=== PATIENT | male | born 1945 | race Caucasian/White ===

== ENCOUNTER → 2017-12-24 | Emergency (ER) | payer MEDICARE ==
[~2017-12-24] MED LIST: AMIGESIC750 MG PO; CILOSTAZOL100 MG PO; DUO-KAPS1 CAP PO; METOPROLOL SUCC25 M1 PO; MOBIC15 M1 PO; MULTIPLE VITAMI1 TA1 PO; NEURONTIN100 M1 PO; PAIN RELIEVER500 M2 PO; PENTOPAK400 MG PO; PRILOSEC 20MG20 MG PO; ST. JOSEPH81 M2 PO; ULTRAM50 M1 PO; VITAMIN C PURE500 M1 PO; VITAMIN C500 MG PO; XALATAN EYE DROPS OU
[2017-12-24 16:45] LABS: EOS # 0.2 (0.04-0.40); EOS % 2.2 % (0.0-4.0); HEMATOCRIT 47.2 % (42.0-52.0); HEMOGLOBIN 15.7 g/dL (13.5-18.0); LYMPH# 1.7 (1.50-4.00); MEAN CELL VOLUME 90 fl (78-100); MEAN CORPUSCULAR HEMOGLOBIN 30 pg (27-31); MEAN CORPUSCULAR HGB CONC 33 g/dL (33-37); MEAN PLATELET VOLUME 10.4 fl (7.4-10.4); MONO # 0.9 (0.20-0.80); NEU # 6.5 (1.40-6.50); PLATELET COUNT 234 K/mm3 (130-400); RED BLOOD COUNT 5.22 M/mm3 (4.20-5.60); RED CELL DISTRIBUTION WIDTH 14.2 % (11.5-14.5); WHITE BLOOD COUNT 9.4 K/mm3 (4.8-10.8)
[2017-12-24 16:52] LABS: ALBUMIN 4.5 g/dL (3.5-5.0); BUN/CREATININE RATIO 16.4 (6.0-26.0); CALCIUM 9.2 mg/dL (8.4-10.2); POTASSIUM 3.4 mmol/L (3.6-5.0); TOTAL BILIRUBIN 0.8 mg/dL (0.2-1.3); TOTAL PROTEIN 7.9 g/dL (6.3-8.2)
[2017-12-24 19:45] VITALS: BP 176/93
[2017-12-24 22:29] LABS: URINE APPEARANCE CLEAR; URINE BILIRUBIN NEGATIVE (NEGATIVE); URINE COLOR YELLOW; URINE GLUCOSE NEGATIVE (NEGATIVE); URINE KETONE NEGATIVE (NEGATIVE); URINE PROTEIN(semi-quant) TRACE mg/dL (NEGATIVE)
[2017-12-24 22:30] LABS: URINE BLOOD TRACE (NEGATIVE); URINE NITRATE NEGATIVE (NEGATIVE); URINE UROBILINOGEN NORMAL (NORMAL)
[2017-12-24 22:32] LABS: URINE LEUKOCYTE ESTERASE NEGATIVE (NEGATIVE); URINE WBC 0-1 /hpf (0-3)
== END ==
LOC: ED 15:55
PROVIDERS: Physician Assistant
DX: K56.609 Unspecified intestinal obstruction, unspecified as to partial versus complete obstruction (principal); I10 Essential (primary) hypertension; K21.9 Gastro-esophageal reflux disease without esophagitis; Z90.49 Acquired absence of other specified parts of digestive tract; Z79.82 Long term (current) use of aspirin
CPT/HCPCS: J1885; Q9967

== ENCOUNTER 2018-04-14 23:28 | Emergency (ER) | payer MEDICARE ==
[~2018-04-14] VITALS: Ht 172.7 cm; Wt 79.5 kg
[~2018-04-14 23:28] MED LIST changes: +ASPIRIN 81M81 MG/TA2 PO; -CILOSTAZOL100 MG PO; +PLETAL 100MG T100 MG PO; -ST. JOSEPH81 M2 PO
[2018-04-15 02:59] VITALS: BP 148/83
== END 2018-04-15 02:59 | disposition home or self-care (01) ==
LOC: ED 23:28
DX: S09.93XA Unspecified injury of face, initial encounter (principal); S16.1XXA Strain of muscle, fascia and tendon at neck level, initial encounter; S00.31XA Abrasion of nose, initial encounter; S80.212A Abrasion, left knee, initial encounter; S60.512A Abrasion of left hand, initial encounter; S60.511A Abrasion of right hand, initial encounter; M25.521 Pain in right elbow; M25.532 Pain in left wrist; M25.531 Pain in right wrist; R51 Headache; R42 Dizziness and giddiness; W01.198A Fall on same level from slipping, tripping and stumbling with subsequent striking against other object, initial encounter; Y92.008 Other place in unspecified non-institutional (private) residence as the place of occurrence of the external cause; R40.2412 Glasgow coma scale score 13-15, at arrival to emergency department; I10 Essential (primary) hypertension; Z23 Encounter for immunization; Z79.82 Long term (current) use of aspirin
CPT/HCPCS: 90714

== ENCOUNTER 2019-12-23 23:50 | Observation (INO) | payer MEDICARE ==
[~2019-12-23] VITALS: Ht 172.7 cm; Wt 78.0 kg
[2019-12-24 00:31] LABS: EOS # 0.2 (0.04-0.40); EOS % 2.9 % (0.0-4.0); HEMATOCRIT 42.7 % (42.0-52.0); MEAN CELL VOLUME 92 fl (78-100); MEAN CORPUSCULAR HEMOGLOBIN 30 pg (27-31); MEAN CORPUSCULAR HGB CONC 33 g/dL (33-37); MONO # 0.6 (0.20-0.80); PLATELET COUNT 253 K/mm3 (130-400); RED BLOOD COUNT 4.64 M/mm3 (4.20-5.60); WHITE BLOOD COUNT 6.8 K/mm3 (4.8-10.8)
[2019-12-24 00:38] LABS: ALBUMIN 4.1 g/dL (3.4-4.8); POTASSIUM 3.8 mmol/L (3.5-5.1); SODIUM 143 mmol/L (136-145)
[2019-12-24 00:39] LABS: CALCIUM 9.2 mg/dL (8.3-10.5)
[2019-12-24 00:41] LABS: GLUCOSE 109 mg/dL (75-110); TOTAL PROTEIN 6.6 g/dL (6.2-8.1)
[2019-12-24 00:42] LABS: CARBON DIOXIDE 26 mmol/L (23-31); TOTAL BILIRUBIN 0.5 mg/dL (0.2-1.2)
[2019-12-24 00:46] LABS: AST-SGOT 17 U/L (5-34)
[2019-12-24 00:47] LABS: ALT/SGPT 17 U/L (0-55)
[2019-12-24 00:49] LABS: PROTHROMBIN TIME 10.1 SECONDS (9.0-12.0)
[2019-12-24 00:50] LABS: ALCOHOL IN-HOUSE < 10 mg/dL (<10)
[2019-12-24 00:54] LABS: TROPONIN-I < 0.03 ng/mL (<0.030)
[2019-12-24 02:01] VITALS: BP 133/77
[2019-12-24 02:02] VITALS: BP 133/77
[2019-12-24 05:50] VITALS: BP 146/72
--- NOTE | 2019-12-24 06:55 | NUR ---
PT ADMITED OBSERVATION WITH POSSIABLE TIA. PT HAS NO FURTHER ISSUES DURING THE NIGHT. REST QUIETLY DURING THE NIGHT. WHEN PT WAKED IN THE AM HE IS CONCERNED ABOUT HIS CAT AND IS WANTING TO LEAVE. PT PASSES NEUROS WITH NO DEFICITS.
--- NOTE | 2019-12-24 08:45 | NUR ---
PT IS SITTING UP IN RECLINER CHAIR EATING BREAKFAST AT THIS TIME. THE PT DENIES ANY NUMBNESS, TINGLING, OR WEAKNESS AND STATES THAT ALL OF HIS PRIOR SYMPTOMS ARE SINCE RESOLVED. THE PT WALKS TO THE RESTROOM WITH SBA AND DENIES ANY DIZZINESS. PT DENIES ANY NEEDS AT THIS TIME. RESTING COMFORTABLY AND RESPIRATIONS ARE EVEN AND UNLABORED.
[2019-12-24 09:49] VITALS: BP 139/72
[2019-12-24 13:48] LABS: POTASSIUM 4.1 mmol/L (3.5-5.1)
[2019-12-24 13:50] LABS: CALCIUM 9.6 mg/dL (8.3-10.5)
[2019-12-24 14:11] VITALS: BP 135/76
--- NOTE | 2019-12-24 16:10 | NUR ---
PT IS DISCHARGED HOME. PT AMBULATES OFF OF UNIT WITH ALL PERSONAL BELONGINGS IN HAND. PT IS PROVIDED WITH DISCHARGE INSTRUCTIONS AND EDUCATION AND VERBALIZES UNDERSTANDING. PT DENIES ANY QUESTIONS OR CONCERNS AT THIS TIME.
== END 2019-12-24 16:10 | disposition home or self-care (01) ==
LOC: ED 23:50 → MED/SURG 12-24 00:58
PROVIDERS: ADMIT Nurse Practitioner Family
DX: R20.2 Paresthesia of skin (principal); N17.9 Acute kidney failure, unspecified; I10 Essential (primary) hypertension; K21.9 Gastro-esophageal reflux disease without esophagitis; I73.9 Peripheral vascular disease, unspecified; Z79.899 Other long term (current) drug therapy; Z79.82 Long term (current) use of aspirin; Z87.891 Personal history of nicotine dependence; Z88.0 Allergy status to penicillin; Z88.6 Allergy status to analgesic agent
CPT/HCPCS: G0378; J7030

== ENCOUNTER 2021-12-08 20:22 | Emergency (ER) | payer MEDICARE ==
[~2021-12-08] VITALS: Ht 172.7 cm; Wt 78.0 kg
[2021-12-08] MEDS ORDERED: LISINOPRIL10 MG PO (20:40)
[2021-12-08] MEDS ORDERED: CLOPIDOGREL PO (20:41)
[2021-12-08] MEDS ORDERED: ATORVASTATIN CA40 MG PO (20:42)
[2021-12-08 21:16] LABS: BASO # 0.07 K/mm3 (0.02-0.10); EOS # 0.06 K/mm3 (0.04-0.40); EOS % 0.5 % (0.0-4.0); HEMATOCRIT 32.2 % (42.0-52.0); HEMOGLOBIN 10.2 g/dL (13.5-18.0); LYMPH# 2.69 K/mm3 (1.50-4.00); MEAN CELL VOLUME 85 fl (78-100); MEAN CORPUSCULAR HEMOGLOBIN 27 pg (27-31); MEAN CORPUSCULAR HGB CONC 32 g/dL (33-37); MONO # 0.78 K/mm3 (0.20-0.80); NEU # 7.67 K/mm3 (1.40-6.50); PLATELET COUNT 277 K/mm3 (130-400); RED BLOOD COUNT 3.81 M/mm3 (4.20-5.60); RED CELL DISTRIBUTION WIDTH 12.8 % (11.5-14.5); WHITE BLOOD COUNT 11.3 K/mm3 (4.8-10.8)
[2021-12-08 21:25] LABS: POTASSIUM 4.2 mmol/L (3.5-5.1)
[2021-12-08 21:26] LABS: SODIUM 139 mmol/L (136-145)
[2021-12-08 21:27] LABS: CALCIUM 9.6 mg/dL (8.3-10.5)
[2021-12-08 21:28] LABS: GLUCOSE 98 mg/dL (75-110); TOTAL PROTEIN 6.7 g/dL (6.2-8.1)
[2021-12-08 21:29] LABS: CARBON DIOXIDE 22 mmol/L (23-31)
[2021-12-08 21:30] LABS: TOTAL BILIRUBIN 0.5 mg/dL (0.2-1.2)
[2021-12-08 21:33] LABS: AST-SGOT 16 U/L (5-34)
[2021-12-08 21:34] LABS: ALT/SGPT 13 U/L (0-55)
[2021-12-08 21:40] LABS: TROPONIN-I < 0.030 ng/mL (<0.030)
[2021-12-08] MEDS ORDERED: NORCO 325 MG-51 TA1 PO (22:31)
[2021-12-08 23:08] VITALS: BP 139/65
== END 2021-12-08 23:09 | disposition home or self-care (01) ==
LOC: ED 20:22
PROVIDERS: Family Medicine
DX: R05.9 Cough, unspecified (principal)